=== PATIENT | female | born 1970 | race Native Hawaiian/Other Pacific Islander ===

== ENCOUNTER 2020-09-13 11:42 | Outpatient (CLI) | payer OTHER | END 2020-09-13 23:11 | disposition home or self-care (01) | LOC: RAD 11:42 | PROVIDERS: ATTEND Nurse Practitioner Family | DX: R05 Cough (principal); R06.02 Shortness of breath ==

== ENCOUNTER 2022-08-11 09:13 | Outpatient (CLI) | payer OTHER | END 2022-08-11 19:02 | disposition home or self-care (01) | LOC: MAMMO 09:13 | PROVIDERS: ATTEND Nurse Practitioner Family | DX: Z12.31 Encounter for screening mammogram for malignant neoplasm of breast (principal) ==

== ENCOUNTER 2022-09-11 08:38 | Outpatient (CLI) | payer OTHER | END 2022-09-11 21:22 | disposition home or self-care (01) | LOC: MAMMO 08:38 | PROVIDERS: ATTEND Nurse Practitioner Family | DX: R92.2 Inconclusive mammogram (principal) ==

== ENCOUNTER 2023-02-03 09:35 | Outpatient (CLI) | payer OTHER | END 2023-02-03 19:19 | disposition home or self-care (01) | LOC: MAMMO 09:35 | PROVIDERS: ATTEND Nurse Practitioner Family | DX: R92.8 Other abnormal and inconclusive findings on diagnostic imaging of breast (principal) ==